=== PATIENT | female | born 1950 | race Native Hawaiian/Other Pacific Islander ===

== ENCOUNTER 2018-01-19 14:58 | Outpatient (CLI) | payer OTHER | END 2018-01-19 21:46 | disposition home or self-care (01) | LOC: LABW 14:58 | DX: B35.1 Tinea unguium (principal) | CPT/HCPCS: 36415; 84450; 84460 ==

== ENCOUNTER 2018-06-27 12:06 | Outpatient (CLI) | payer OTHER | END 2018-06-27 20:01 | disposition home or self-care (01) | LOC: LABW 12:06 | DX: B35.1 Tinea unguium (principal) | CPT/HCPCS: 84450; 84460 ==

== ENCOUNTER 2022-03-16 12:43 | Outpatient (CLI) | payer OTHER | END 2022-03-16 19:42 | disposition home or self-care (01) | LOC: RAD 12:43 | PROVIDERS: ATTEND Internal Medicine | DX: Z12.31 Encounter for screening mammogram for malignant neoplasm of breast (principal); Z13.820 Encounter for screening for osteoporosis; N95.8 Other specified menopausal and perimenopausal disorders ==

== ENCOUNTER 2022-12-31 13:42 | Outpatient (CLI) | payer OTHER | END 2022-12-31 20:02 | disposition home or self-care (01) | LOC: CT 13:42 | PROVIDERS: ATTEND Internal Medicine | DX: R41.82 Altered mental status, unspecified (principal) ==